=== PATIENT | female | born 1940 | race Caucasian/White ===

== ENCOUNTER 2018-07-21 09:40 | Day surgery (SDC) | payer MEDICARE, OTHER ==
[~2018-07-21] VITALS: Ht 157.5 cm; Wt 58.9 kg
[2018-07-21] VITALS (9 sets, daily range): BP systolic 124–140; BP diastolic 60–66; PULSE 62–68; RESP 10–18; Ht 157.5 cm; Wt 58.9 kg
--- NOTE | 2018-07-21 07:59 | HPN ---
Date/Time of Note Date/Time of Note DATE: 07/21/18 TIME: 07:58 Interval H&P Admission Note Pt. seen H&P reviewed: No system changes JULIANA CURRY MD Jul 21, 2018 07:59
[~2018-07-21 09:40] MED LIST: CEFAZOLIN 1 GM INJ ONE; CEFAZOLIN 2 GM/50 ML (PMX) 50 ML IVPB PRN
[2018-07-21] MEDS ORDERED: TERI2.4P SQ (10:12)
[2018-07-21] MEDS ORDERED: CYCL5TAB PO (10:14)
[2018-07-21] MEDS ORDERED: METF500T24 PO (10:15)
[2018-07-21] MEDS ORDERED: LINA5TAB PO (10:15)
[2018-07-21] MEDS ORDERED: CALC-143 PO (10:16)
[2018-07-21] MEDS ORDERED: LEVO75TA65 PO (10:17)
[2018-07-21] MEDS ORDERED: AMLO5TAB4 PO (10:17)
[2018-07-21] MEDS ORDERED: LOSA1TAB22 PO (10:17)
[2018-07-21] MEDS ORDERED: SIMV40TA2 PO (10:18)
[2018-07-21] MEDS ORDERED: SERT50TA PO (10:18)
[2018-07-21] MEDS ORDERED: ERGO2000 PO (10:19)
[2018-07-21] MEDS ORDERED: FOLI-49 PO (10:19)
[2018-07-21] MEDS ORDERED: CYCL1DRO BOTH EYES (10:20)
[2018-07-21] MEDS ORDERED: NAPR220C2 PO (10:20)
[2018-07-21] MEDS ORDERED: OMEP20CA16 PO (10:20)
[2018-07-21] MEDS ORDERED: VIT1TABL46 PO (10:23)
[2018-07-21] MEDS ORDERED: CYAN100T PO (10:23)
[2018-07-21] MEDS ORDERED: CARB15DR3 BOTH EYES (10:24)
[2018-07-21] MEDS ORDERED: FLUO5DRO BOTH EYES (10:25)
[2018-07-21] MEDS ORDERED: ALBU8.5H8 INH (10:26)
[2018-07-21] MEDS ORDERED: MAGN400T27 PO (10:26)
[2018-07-21] MEDS ORDERED: ASC500 PO (10:26)
[2018-07-21] MEDS ORDERED: FOLI1TAB5 PO (10:27)
[2018-07-21] MEDS ORDERED: DORZ10DR5 BOTH EYES (10:28)
[2018-07-21] MEDS ORDERED: UROCIT PO (10:30)
[2018-07-21] MEDS ORDERED: POLY15DR25 BOTH EYES (10:31)
--- NOTE | 2018-07-21 11:02 | PDOCDIS ---
Discharge Instructions DIAGNOSIS Discharge Diagnosis LLE ATHEROSCLEROSIS AND NON HEALING ULCER CONDITION [id number] Patient Condition: [id number] Good HOME CARE INSTRUCTIONS: [id number] Diet Instructions: [id number] Low Fat /Cholesterol ACTIVITY: [id number] Activity Restrictions: Arivw9b Slowly Increase Activity Avoid heavy lifting Do not Drive Do not operate Machinery Do not operate Power Tool Avoid Heavy Housework Keep Limb Elevated [id number] Bathing Restrictions: Esbyr0l Sponge Bath FOLLOW UP/APPOINTMENTS Follow-up Plan DO NOT REMOVE DRESSING FOR ONE WEEK. FOLLOWUP NEXT WEEK ON FRIDAY AM IN THE WOUND CARE OFFICE JULIANA CURRY MD Jul 21, 2018 11:02
--- NOTE | 2018-07-21 11:06 | SIPON ---
Date/Time of Note Date/Time of Note DATE: 07/21/18 TIME: 11:03 Operative Report Preoperative Diagnosis LLE ATHEROSCLEROSIS AND NONHEALING ULCER Postoperative Diagnosis SAME Operation/Procedure Performed LLE DEBRIDEMENT AND STSG SUBSTITUTE APPLICATION WITH AMNIOTIC TISSUE Surgeon see signature line assistant professor of spanish NONE Anesthesia: moderate sedation Estimated blood loss: minimal Transfusion Required none Specimen NONE Grafts/Implants AMNIOTIC TISSUE MIMEDIX Complications none JULIANA CURRY MD Jul 21, 2018 11:06
[2018-07-21] MEDS ORDERED: LIDOCAINE 1% (MPF) 30 ML INJ ONE (11:34)
--- NOTE | 2018-07-21 11:44 | PREAC ---
Date/Time of Note Date/Time of Note DATE: 07/21/18 TIME: 11:42 Anesthesia Eval and Record Evaluation Time Pre-Procedure Interview DATE: 07/21/18 TIME: 11:42 Age 78 Sex female NPO: 8 hrs Preoperative diagnosis left lower extremity arthrosclerosis and non healing Planned procedure left lower extremity debriedment Past Medical History Past Medical History: Includes Cardio: HTN, Dyslipidemia Endo: Diabetes, Hypothyroid Surgery & Anesthesia Issues No known issue Meds Anticoagulation: No Beta Vasile within 24 hr: No Reason Beta Vasile not given: Pt. not on B-Vasile Reported Medications Polyvinyl Alcohol (Tears Again) 15 Ml Drops, 1 DRP BOTH EYES PRN, BOTTLE 07/21/18 Potassium Citrate* (Urocit-K*) 5 Meq Tabsr, 1 MEQ PO DAILY, TAB.SA 07/21/18 Dorzolamide Hcl* (Dorzolamide Hcl*) 10 Ml Drops, 1 DROP BOTH EYES TID, #1 EA 07/21/18 Folic Acid/Multivits-Min/Lut (Centrum Silver Chewable Tablet) 1 Each Tab.chew, 1 EACH PO DAILY, TAB.CHEW 07/21/18 Ascorbic Acid (Vitamin C) 500 Mg Tab, 500 MG PO DAILY, TAB 07/21/18 Albuterol Sulfate* (Proair HFA*) 8.5 Gm Hfa.aer.ad, 2 PUFF INH Q4H PRN for WHEEZING AND SOB, #1 INHALER 07/21/18 Magnesium Oxide* (Mag-Oxide*) 400 Mg Tablet, 400 MG PO BID, TAB 07/21/18 Fluorometholone* (FML*) 5 Ml Drops.susp, 1 DROP BOTH EYES BID, BOTTLE 07/21/18 Carboxymethylcellulose Sodium* (Refresh Tears*) 15 Ml Drops, 1 DROP BOTH EYES DAILY, #1 EA 07/21/18 Vitamin B Complex* (Vitamin B Complex*) 1 Each Tablet, 1 TAB PO DAILY, TAB 07/21/18 Cyanocobalamin* (Vitamin B12*) 100 Mcg Tab, 100 MCG PO DAILY, TAB 07/21/18 Cyclosporine (RESTASIS) 1 Each Droperette, 1 DROP BOTH EYES Q12, #1 BOX 07/21/18 Omeprazole* (Omeprazole*) 20 Mg Capsule.dr, 20 MG PO DAILY, #30 CAP 1/15/19 Naproxen* (Aleve*) 220 Mg Capsule, 220 MG PO BID PRN for PAIN AND/OR INFLAMMATION, #60 CAP 07/21/18 Folic Acid* (Folic Acid*) 1 Mg Tablet, 1 MG PO DAILY, TAB 07/21/18 Ergocalciferol (Vitamin D2) (VITAMIN D2) 2,000 Unit Tablet, 2000 UNIT PO DAILY, TAB 07/21/18 Simvastatin* (Zocor*) 40 Mg Tablet, 40 MG PO QHS, #30 TAB 07/21/18 Sertraline Hcl* (Zoloft*) 50 Mg Tablet, 50 MG PO DAILY, #30 TAB 07/21/18 Amlodipine Besylate* (Norvasc*) 5 Mg Tablet, 5 MG PO DAILY, TAB 07/21/18 Losartan-Hydrochlorothiazide (Losartan-HCTZ) 50-12.5 Mg Tab, 1 TAB PO DAILY, TAB 07/21/18 Levothyroxine Sodium* (Levoxyl*) 75 Mcg Tablet, 75 MCG PO BEFORE BREAKFAST, #30 TAB 07/21/18 Calcium Citrate/Vitamin D (Citracal-Vitamin D 200 MG-250) 1 Each Tablet, 1 EACH PO BID, TAB 07/21/18 Linagliptin (TRADJENTA) 5 Mg Tablet, 5 MG PO DAILY, TAB 07/21/18 Metformin Hcl* (Metformin Hcl*) 500 Mg Tablet, 500 MG PO WITH BREAKFAST DINNE, #60 TAB 07/21/18 Cyclobenzaprine Hcl* (Cyclobenzaprine Hcl*) 5 Mg Tablet, 5 MG PO DAILY PRN for MUSCLE SPASMS, #60 TAB 07/21/18 Teriparatide (Forteo) 2.4 Ml Pen.injctr, 20 MCG SQ DAILY, EA 07/21/18 Current Medications Cefazolin Sodium/ Dextrose 50 ml @ 100 mls/hr OC PRN IVPB TO OR; Start 07/21/18 at 06:00; Stop 07/21/18 at 14:00 Meds reviewed: Yes Allergies Coded Allergies: No Known Allergies (Verified Allergy, Unknown, 07/21/18) Allergies Reviewed: Yes Labs/Studies Labs Reviewed: Reviewed by anesthesiologist Result Diagram: 07/21/18 1008 07/21/18 1008 Laboratory Tests 07/21/18 10:08 test: N/A Studies: ECG (SR) Pre-procedure Exam Last vitals Vital Signs Date Temp Pulse Resp B/P (MAP) Pulse Ox O2 O2 Flow FiO2 Time Delivery Rate 07/21/18 96.4 64 18 134/63 98 Room Air 10:25 (86) Airway: Adequate mouth opening Mallampati: Mallampati II Teeth: Normal Lung: Normal Heart: Normal ASA Physical Status ASA physical status: 2 Emergency: None Planned Anesthetic General/MAC: ETT Pre-operative Attestations Prior to commencing anesthesia and surgery, the patient was re-evaluated, there was verification of: *The patient's identity *The results of appropriate recent lab work and preoperative vital signs *The above evaluation not changing prior to induction *Anesthetic plan, risk benefits, alternative and complications discussed with patient/family; questions answered; patient/family understands, accepts and wishes to proceed. KEYLA BROWN Jul 21, 2018 11:44
[2018-07-21] MEDS ORDERED: FENTAnyl 50 MCG/ML VIAL ONE ×2 (12:18→12:32)
[2018-07-21] MEDS ORDERED: MIDAZOLAM 1 MG/ML 2 ML INJ ONE (12:18)
--- NOTE | 2018-07-21 12:55 | PAC ---
Date/Time of Note Date/Time of Note DATE: 07/21/18 TIME: 12:54 Post-Anesthesia Notes Post-Anesthesia Note Last documented vital signs Vital Signs Date Temp Pulse Resp B/P (MAP) Pulse Ox O2 O2 Flow FiO2 Time Delivery Rate 07/21/18 96.4 64 18 134/63 98 Room Air 10:25 (86) Activity: WNL Respiratory function: WNL Cardiovascular function: WNL Mental status: Baseline Pain reasonably controlled: Yes Hydration appropriate: Yes Nausea/Vomiting absent: Yes Comments BP:134/67, pulse:78, spo2:100%,T:98,3 CHARLES GONZALEZ MD Jul 21, 2018 12:55
[2018-07-21] MEDS ORDERED: FENTAnyl 50 MCG/ML VIAL IV PRN (13:00)
[2018-07-21] MEDS ORDERED: DIPHENHYDRAMINE 50 MG INJ IV PRN (13:00)
[2018-07-21] MEDS ORDERED: ONDANSETRON 4 MG INJ IV PRN (13:00)
--- NOTE | 2018-07-21 13:06 | OPR ---
DATE OF OPERATION: SURGEON: Oskar Harper MD PREOPERATIVE DIAGNOSES: 1. Left lower extremity atherosclerosis. 2. Nonhealing ulcer. POSTOPERATIVE DIAGNOSES: 1. Left lower extremity atherosclerosis. 2. Nonhealing ulcer. ANESTHESIA: Local with moderate sedation. ESTIMATED BLOOD LOSS: Minimal. COMPLICATIONS: None. HEPARIN: None. SPECIMEN: None. GRAFT: Amniotic tissue, split thickness skin graft, mesh 4 x 4.5 cm and AmnioFill 500 mg. COMPLICATIONS: None. OPERATIONS PERFORMED: 1. Left lower extremity debridement of skin, subcutaneous tissue and muscle less than 20 cm2. 2. Split thickness skin graft, application of skin graft substitute using 4 x 4.5 cm mesh. 3. Skin graft substitute AmnioFill skin graft substitute a paste 500 mg. DESCRIPTION OF PROCEDURE: The patient was brought into the operating room table, placed in supine po sition. Bilateral upper extremities were placed at 80 degrees. All bony prominences were padded too ropriately. A timeout was performed and the correct site was marked and confirmed. Preoperative ant ibiotics were given to the patient. At this point, left lower extremity was then prepped and draped in usual standard sterile fashion. Using curet and sharp scissors, excisional sharp debridement of t he left lower extremity wound was performed, all necrotic tissue was removed and adequate rebleeding was identified. Excisional debridement involved the skin, subcutaneous tissue and underlying muscle with some exposed tendon. At this point as the patient does have a wound defect, we went ahead and a pplied an AmnioFill paste and this is an amniotic tissue as skin graft substitute in order to fill th e gap and provide adequate coverage of the wound defect in order to allow for secondary wound closure . Once the paste was applied, we went ahead and covered it with a mesh 4 x 4.5 cm amniotic tissue wi th split-thickness skin graft substitute application. Once that was performed, we went ahead and karley emery Adaptic, Telfa and Kerlix sterile dressing. The patient tolerated the procedure well and was ana m en to postanesthesia care unit in stable condition. PLAN: We are hoping to leave the wound intact over the next 7 days to allow adequate uptake of the g raft and amniotic tissue in order to provide coverage of the wound defect area and for a secondary wo und healing. Dictated By: OSKAR COVARRUBIAS/DIMITRIS Conf#: [id number] [employer]#: [id number]
--- NOTE | 2018-07-21 19:51 | RADRPT ---
Vent Rate: 60 bpm RR Interval: 1000 msec NE Interval: 202 msec QRS Duration: 86 msec QT Interval: 431 msec QTC Interval: 431 msec P-R-T Dwale: 27 - -8 - 44 degrees Sinus rhythm...incomplete ECG Electronically Signed By: Brigido Romo [id number]
[2018-08-10] MEDS ORDERED: BUPR-165 PO (07:22)
[2018-08-10] MEDS ORDERED: GABA100C PO (07:22)
[2018-08-10] MEDS ORDERED: ALPR0.254 PO (07:22)
== END 2018-07-21 14:06 | disposition home or self-care (01) ==
LOC: SDS 09:40
PROVIDERS: ATTEND Student in an Organized Health Care Education/Training Program
DX: I70.248 Atherosclerosis of native arteries of left leg with ulceration of other part of lower leg (principal); L97.829 Non-pressure chronic ulcer of other part of left lower leg with unspecified severity; I10 Essential (primary) hypertension; E11.9 Type 2 diabetes mellitus without complications; E78.00 Pure hypercholesterolemia, unspecified
CPT/HCPCS: 11043; 71045; 80048; 81003; 82962; 85025; 85610; 85730; 93005; 93970; J0690; J2250; J3010

== ENCOUNTER 2018-08-25 09:39 | Day surgery (SDC) | payer MEDICARE, OTHER ==
[2018-08-24 13:54] VITALS: Ht 160 cm; Wt 60.0 kg
[2018-08-25] VITALS (12 sets, daily range): BP systolic 121–157; BP diastolic 58–70; PULSE 58–62; RESP 11–18
[~2018-08-25] VITALS: Ht 160 cm; Wt 60.0 kg
[~2018-08-25 09:39] MED LIST changes: +ALBU8.5H8 INH; +ALPR0.254 PO; +AMLO5TAB4 PO; +ASC500 PO; +BUPR-165 PO; +CALC-143 PO; +CARB15DR3 BOTH EYES; -CEFAZOLIN 1 GM INJ ONE; -CEFAZOLIN 2 GM/50 ML (PMX) 50 ML IVPB PRN; +CYAN100T PO; +CYCL1DRO BOTH EYES; +CYCL5TAB PO; +DORZ10DR5 BOTH EYES; +ERGO2000 PO; +FLUO5DRO BOTH EYES; +FOLI-49 PO; +FOLI1TAB5 PO; +GABA100C PO; +LEVO75TA65 PO; +LINA5TAB PO; +LOSA1TAB22 PO; +MAGN400T27 PO; +METF500T24 PO; +NAPR220C2 PO; +OMEP20CA16 PO; +POLY15DR25 BOTH EYES; +SERT50TA PO; +SIMV40TA2 PO; +TERI2.4P SQ; +UROCIT PO; +VANCOMYCIN 1 GM 250 ML IVPB SCH; +VIT1TABL46 PO
[2018-08-25] MEDS ORDERED: ACETAMINOPHEN 500 MG TAB PO ONE (10:30)
--- NOTE | 2018-08-25 11:46 | HPN ---
Date/Time of Note Date/Time of Note DATE: 08/25/18 TIME: 11:46 Interval H&P Admission Note Pt. seen H&P reviewed: No system changes JULIANA CURRY MD Aug 25, 2018 11:46
--- NOTE | 2018-08-25 11:50 | CONS ---
Assessment/Plan Assessment/Plan Assessment/Plan (Daily) VASCULAR SURGERY CONSULTATION Dear Doctors: Ms. Douglas is a 77-year-old female who presented to us with past medical history of left lower extremity nonhealing ulcer on the lateral aspect of the lower leg that she has had now for couple months that had not healed and grad ually worsening. Patient was seen by us in our outpatient office and was sent to our wound care clinic for further management and intervention. At the moment, the patient's [id number] has been applying Medihoney to it daily with local debridements and amniotic tissue application in order to help clean the wound and allow for secondary wound healing. She had also underwent lower extremity angiogram that identified she shoul;d have adeqautre perfusion to the areas that we are concerned about. Since our evaluation of the patient she has now developed a new ulcer just superior to the original one that is also concerning. Upon our biopsy and debridement with our last intervention no findings to suggest cancer or vasculitis or atypia was identified Further, the patient will underwent venous reflux studies as she has bilateral lower extremity varicose veins but were normal. At the moment, the patient denies shortness of breath, chest pain, nausea, vomiting, fever or chills. REVIEW OF SYSTEMS: A 14-point review performed and negative except what is mentioned in the HPI. PAST MEDICAL HISTORY: Entails hypertension, diabetes, hypercholesterolemia, thyroid disease. PAST SURGICAL HISTORY: Cholecystectomy. ALLERGIES: No known drug allergies. SOCIAL HISTORY: Denies current tobacco, alcohol or illicit drug use. FAMILY HISTORY: Positive for diabetes and hypertension. PHYSICAL EXAMINATION: GENERAL: Alert and oriented x3, no apparent distress. HEENT: Normocephalic, atraumatic. Mucosa moist. NECK: Supple. No carotid bruit. PULMONARY: Clear to auscultation bilaterally. No crackles. CARDIOVASCULAR: S1, S2 present. No murmurs. ABDOMEN: Soft, nontender, nondistended. Bowel sounds positive. RIGHT LOWER EXTREMITY: Palpable femoral pulse, faint pedal pulse. Motor, and sensory intact. Cap refill 3 seconds. Presence of lipodermatosclerosis edema 1+. Presence of varicose veins. LEFT LOWER EXTREMITY: Palpable femoral pulse, faint to nonpalpable pedal pulse were very weak. Capillary refill 3 to 4 seconds. Presence of lipodermatosclerosis edema and varicose veins. Presence of ulcer on the lateral aspect of the lower leg appears to be healing well no exposed subcutaneous tissue identified. There is still residual amniotic tissue covering the ulcer. The new ulcer superior to the current ulcer with exposure of subcutaneous tissue with fibrinous necrotic tissue. No surrounding erythema at this point. ASSESSMENT AND PLAN: -Bilateral lower extremity atherosclerosis and a left lower extremity nonhealing ulcer. It seems the patient has had prolonged nonhealing of her left lower extremity ulcer that has not improved with local wound care. Upon her recent evaluation of her arterial studies, the patient does have severe atherosclerotic disease of her left tibial vessels that was noted however upon an angiogram she did have two vessel tibial arteries to the distal ankle that should provide adequate healing for the ulcers. It is concerning she has developed a new also superior to the previous one without any recent trauma or injury to the site. Concern for vasculitis and/or cancer is her biopsy appears to be low. We will continue with our local wound debridement and wound care -She is ambulatory and patient's family would like to have everything done in order to salvage her limb and prevent any further deterioration of the wounds. The patient and the family at the bedside have agreed to proceed, understanding all the risks and benefits involved. They also would like to have everything done in order to help heal this wound as this has become quite painful for the patient. Bilateral lower extremity varicose veins and venous insufficiency. The patient does have significant varicose veins of the lower leg and with the presence of lipodermatosclerosis there is some concern that she may also have a mixed disease with venous insufficiency that could be contributing to the fact that the wound has not been healing. We will therefore plan bilateral lower extremity venous reflux studies to evaluate her deep and superficial system to better delineate these findings. We had also offered the patient a 2 to 3 - layer compression therapy once we have had our reflux studies and angiogram completed. But she has not been compliant with that Optimize vascular status (BP meds, diet, nutrition, exercise, sugar control, antiplatelets). Discussed findings, plan and management with the patient and the family at the bedside and they understand and are on board, certified instructor bridge was also present. Continue with local wound care with collagen-based dressings and a 2 layer compression dressings and amniotic tissue application to help resolve the wound defect and closure of the wound. Discussed findings, plan and management with the patient and the family and they understand. Thank you for allowing us to partake in the care of your patient. Please call with any questions. Consultation Date/Type/Reason Admit Date/Time Date/Time of Note DATE: 08/25/18 TIME: 11:49 Past Medical History Home Meds Reported Medications Gabapentin* (Neurontin*) 100 Mg Capsule, 100 MG PO TID, #90 CAP 08/10/18 Bupropion Hcl* (Wellbutrin SR*) 150 Mg Tablet.sa, 150 MG PO DAILY, TAB.SA 08/10/18 Alprazolam (Xanax) 0.25 Mg Tab, 0.25 MG PO BID, TAB 08/10/18 Polyvinyl Alcohol (Tears Again) 15 Ml Drops, 1 DRP BOTH EYES PRN, BOTTLE 07/21/18 Potassium Citrate* (Urocit-K*) 5 Meq Tabsr, 1 MEQ PO DAILY, TAB.SA 07/21/18 Dorzolamide Hcl* (Dorzolamide Hcl*) 10 Ml Drops, 1 DROP BOTH EYES TID, #1 EA 07/21/18 Folic Acid/Multivits-Min/Lut (Centrum Silver Chewable Tablet) 1 Each Tab.chew, 1 EACH PO DAILY, TAB.CHEW 07/21/18 Ascorbic Acid (Vitamin C) 500 Mg Tab, 500 MG PO DAILY, TAB 07/21/18 Albuterol Sulfate* (Proair HFA*) 8.5 Gm Hfa.aer.ad, 2 PUFF INH Q4H PRN for WHEEZING AND SOB, #1 INHALER 07/21/18 Magnesium Oxide* (Mag-Oxide*) 400 Mg Tablet, 400 MG PO BID, TAB 07/21/18 Fluorometholone* (FML*) 5 Ml Drops.susp, 1 DROP BOTH EYES BID, BOTTLE 07/21/18 Carboxymethylcellulose Sodium* (Refresh Tears*) 15 Ml Drops, 1 DROP BOTH EYES DAILY, #1 EA 07/21/18 Vitamin B Complex* (Vitamin B Complex*) 1 Each Tablet, 1 TAB PO DAILY, TAB 07/21/18 Cyanocobalamin* (Vitamin B12*) 100 Mcg Tab, 100 MCG PO DAILY, TAB 07/21/18 Cyclosporine (RESTASIS) 1 Each Droperette, 1 DROP BOTH EYES Q12, #1 BOX 07/21/18 Omeprazole* (Omeprazole*) 20 Mg Capsule.dr, 20 MG PO DAILY, #30 CAP 07/21/18 Naproxen* (Aleve*) 220 Mg Capsule, 220 MG PO BID PRN for PAIN AND/OR INFLAMMATION, #60 CAP 07/21/18 Folic Acid* (Folic Acid*) 1 Mg Tablet, 1 MG PO DAILY, TAB 07/21/18 Ergocalciferol (Vitamin D2) (VITAMIN D2) 2,000 Unit Tablet, 2000 UNIT PO DAILY, TAB 07/21/18 Simvastatin* (Zocor*) 40 Mg Tablet, 40 MG PO QHS, #30 TAB 07/21/18 Sertraline Hcl* (Zoloft*) 50 Mg Tablet, 50 MG PO DAILY, #30 TAB 07/21/18 Amlodipine Besylate* (Norvasc*) 5 Mg Tablet, 5 MG PO DAILY, TAB 07/21/18 Losartan-Hydrochlorothiazide (Losartan-HCTZ) 50-12.5 Mg Tab, 1 TAB PO DAILY, TAB 07/21/18 Levothyroxine Sodium* (Levoxyl*) 75 Mcg Tablet, 75 MCG PO BEFORE BREAKFAST, #30 TAB 07/21/18 Calcium Citrate/Vitamin D (Citracal-Vitamin D 200 MG-250) 1 Each Tablet, 1 EACH PO BID, TAB 07/21/18 Linagliptin (TRADJENTA) 5 Mg Tablet, 5 MG PO DAILY, TAB 07/21/18 Metformin Hcl* (Metformin Hcl*) 500 Mg Tablet, 500 MG PO WITH BREAKFAST DINNE, #60 TAB 07/21/18 Cyclobenzaprine Hcl* (Cyclobenzaprine Hcl*) 5 Mg Tablet, 5 MG PO DAILY PRN for MUSCLE SPASMS, #60 TAB 07/21/18 Teriparatide (Forteo) 2.4 Ml Pen.injctr, 20 MCG SQ DAILY, EA 07/21/18 Medications Current Medications Vancomycin HCl 250 ml @ 125 mls/hr OC IVPB Last administered on 08/25/18at 10:35; Admin Dose 125 MLS/HR; Start 08/25/18 at 06:30; Stop 08/25/18 at 16:00 Allergies: Coded Allergies: No Known Allergies (Verified Allergy, Unknown, 08/25/18) Social History Smoking Status: Never smoker Exam/Review of Systems Results Results 24hrs Laboratory Tests Test 08/25/18 10:17 Bedside Glucose 126 Medications Medication Current Medications Vancomycin HCl 250 ml @ 125 mls/hr OC IVPB Last administered on 08/25/18at 10:35; Admin Dose 125 MLS/HR; Start 08/25/18 at 06:30; Stop 08/25/18 at 16:00 JULIANA CURRY MD Aug 25, 2018 11:50
--- NOTE | 2018-08-25 11:55 | PREAC ---
Date/Time of Note Date/Time of Note DATE: 08/25/18 TIME: 11:51 Anesthesia Eval and Record Evaluation Time Pre-Procedure Interview DATE: 08/25/18 TIME: 11:51 Age 78 Sex female NPO: 8 hrs Preoperative diagnosis L lower extremity wound Planned procedure L lower extremity wound debridement Past Medical History Past Medical History: Includes Cardio: HTN, Dyslipidemia Endo: Hypothyroid Psych: Anxiety Surgery & Anesthesia Issues No known issue Meds Anticoagulation: No Beta Vasile within 24 hr: No Reason Beta Vasile not given: Pt. not on B-Vasile Reported Medications Gabapentin* (Neurontin*) 100 Mg Capsule, 100 MG PO TID, #90 CAP 08/10/18 Bupropion Hcl* (Wellbutrin SR*) 150 Mg Tablet.sa, 150 MG PO DAILY, TAB.SA 08/10/18 Alprazolam (Xanax) 0.25 Mg Tab, 0.25 MG PO BID, TAB 08/10/18 Polyvinyl Alcohol (Tears Again) 15 Ml Drops, 1 DRP BOTH EYES PRN, BOTTLE 07/21/18 Potassium Citrate* (Urocit-K*) 5 Meq Tabsr, 1 MEQ PO DAILY, TAB.SA 07/21/18 Dorzolamide Hcl* (Dorzolamide Hcl*) 10 Ml Drops, 1 DROP BOTH EYES TID, #1 EA 07/21/18 Folic Acid/Multivits-Min/Lut (Centrum Silver Chewable Tablet) 1 Each Tab.chew, 1 EACH PO DAILY, TAB.CHEW 07/21/18 Ascorbic Acid (Vitamin C) 500 Mg Tab, 500 MG PO DAILY, TAB 07/21/18 Albuterol Sulfate* (Proair HFA*) 8.5 Gm Hfa.aer.ad, 2 PUFF INH Q4H PRN for WHEEZING AND SOB, #1 INHALER 07/21/18 Magnesium Oxide* (Mag-Oxide*) 400 Mg Tablet, 400 MG PO BID, TAB 07/21/18 Fluorometholone* (FML*) 5 Ml Drops.susp, 1 DROP BOTH EYES BID, BOTTLE 07/21/18 Carboxymethylcellulose Sodium* (Refresh Tears*) 15 Ml Drops, 1 DROP BOTH EYES DAILY, #1 EA 07/21/18 Vitamin B Complex* (Vitamin B Complex*) 1 Each Tablet, 1 TAB PO DAILY, TAB 07/21/18 Cyanocobalamin* (Vitamin B12*) 100 Mcg Tab, 100 MCG PO DAILY, TAB 07/21/18 Cyclosporine (RESTASIS) 1 Each Droperette, 1 DROP BOTH EYES Q12, #1 BOX 07/21/18 Omeprazole* (Omeprazole*) 20 Mg Capsule.dr, 20 MG PO DAILY, #30 CAP 07/21/18 Naproxen* (Aleve*) 220 Mg Capsule, 220 MG PO BID PRN for PAIN AND/OR INFLAMMATION, #60 CAP 07/21/18 Folic Acid* (Folic Acid*) 1 Mg Tablet, 1 MG PO DAILY, TAB 07/21/18 Ergocalciferol (Vitamin D2) (VITAMIN D2) 2,000 Unit Tablet, 2000 UNIT PO DAILY, TAB 07/21/18 Simvastatin* (Zocor*) 40 Mg Tablet, 40 MG PO QHS, #30 TAB 07/21/18 Sertraline Hcl* (Zoloft*) 50 Mg Tablet, 50 MG PO DAILY, #30 TAB 07/21/18 Amlodipine Besylate* (Norvasc*) 5 Mg Tablet, 5 MG PO DAILY, TAB 07/21/18 Losartan-Hydrochlorothiazide (Losartan-HCTZ) 50-12.5 Mg Tab, 1 TAB PO DAILY, TAB 07/21/18 Levothyroxine Sodium* (Levoxyl*) 75 Mcg Tablet, 75 MCG PO BEFORE BREAKFAST, #30 TAB 07/21/18 Calcium Citrate/Vitamin D (Citracal-Vitamin D 200 MG-250) 1 Each Tablet, 1 EACH PO BID, TAB 07/21/18 Linagliptin (TRADJENTA) 5 Mg Tablet, 5 MG PO DAILY, TAB 07/21/18 Metformin Hcl* (Metformin Hcl*) 500 Mg Tablet, 500 MG PO WITH BREAKFAST DINNE, #60 TAB 07/21/18 Cyclobenzaprine Hcl* (Cyclobenzaprine Hcl*) 5 Mg Tablet, 5 MG PO DAILY PRN for MUSCLE SPASMS, #60 TAB 07/21/18 Teriparatide (Forteo) 2.4 Ml Pen.injctr, 20 MCG SQ DAILY, EA 07/21/18 Current Medications Vancomycin HCl 250 ml @ 125 mls/hr OC IVPB Last administered on 08/25/18at 10:35; Admin Dose 125 MLS/HR; Start 08/25/18 at 06:30; Stop 08/25/18 at 16:00 Meds reviewed: Yes Allergies Coded Allergies: No Known Allergies (Verified Allergy, Unknown, 08/25/18) Allergies Reviewed: Yes Labs/Studies Labs Reviewed: Reviewed by anesthesiologist test: N/A Studies: ECG, CXR (no acute dz) Pre-procedure Exam Airway: Adequate mouth opening, Adequate thyromental dist Mallampati: Mallampati II Teeth: Abnormal (multiple missing teeth) Lung: Normal Heart: Normal ASA Physical Status ASA physical status: 2 Emergency: None Planned Anesthetic General/MAC: MAC Pre-operative Attestations Prior to commencing anesthesia and surgery, the patient was re-evaluated, there was verification of: *The patient's identity *The results of appropriate recent lab work and preoperative vital signs *The above evaluation not changing prior to induction *Anesthetic plan, risk benefits, alternative and complications discussed with patient/family; questions answered; patient/family understands, accepts and wishes to proceed. Safety Engineer Pressure Vessels used YELENA CHU Aug 25, 2018 11:55
--- NOTE | 2018-08-25 11:59 | OPR ---
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 Left lower extremity atherosclerosis and Nonhealing ulcers. POSTOPERATIVE DIAGNOSES: 1. Left lower extremity atherosclerosis and Nonhealing ulcers. ANESTHESIA: Local with moderate sedation. ESTIMATED BLOOD LOSS: Minimal. COMPLICATIONS: None. HEPARIN: None. SPECIMEN: None. GRAFT: Amniotic tissue, split thickness skin graft, mesh 4 x 6 cm and AmnioFill 500 mg powder mix. COMPLICATIONS: None. OPERATIONS PERFORMED: 1. Left lower extremity excisional sharp debridement of skin, subcutaneous tissue and muscle less than 20 cm2. 2. Split thickness skin graft, application of amniotic tissue (graft substitute) using 4 x 6 cm mesh. DESCRIPTION OF PROCEDURE: The patient was brought into the operating room table, placed in supine position. Bilateral upper extremities were placed at 80 degrees. All bony prominences were padded appropriately. A time-out was performed and the correct site was marked and confirmed. Preoperative antibiotics were given to the patient. At this point, left lower extremity was then prepped and draped in usual standard sterile fashion. Using curet and sharp scissors, excisional sharp debridement of the left lower extremity upper wound was performed, all necrotic tissue was removed and adequate rebleeding was identified. Excisional debridement involved the skin, subcutaneous tissue. This has improved since our last intervention. At this point as the patient does have a wound defect, we went ahead and applied an amniotic tissue powder mix (Amniofill) in order to fill the gap and as amnio graft as split thickness skin graft substitute to provide adequate coverage of the wound in order to allow for secondary wound closure. The substitute measured 4 x 6 cm amniotic tissue. Once that was performed, we went ahead and placed Adaptic, Telfa and Kerlix sterile dressing. The patient tolerated the procedure well and was taken to postanesthesia care unit in stable condition. OSKAR CURRY MD Aug 25, 2018 11:59
[2018-08-25] MEDS ORDERED: FENTAnyl 50 MCG/ML VIAL IV PRN ×2 (12:00)
[2018-08-25] MEDS ORDERED: OXYCODONE/ACETAMINOPHEN (5/325) TAB PO PRN ×2 (12:00)
[2018-08-25] MEDS ORDERED: ALBUTEROL 0.083% (NEB) 2.5 MG/3 ML AMP HHN PRN (12:00)
[2018-08-25] MEDS ORDERED: ONDANSETRON 4 MG INJ IV PRN (12:00)
[2018-08-25] MEDS ORDERED: HYDROmorphONE 1 MG/5 ML IV SYRINGE IV PRN ×2 (12:00)
[2018-08-25] MEDS ORDERED: DIPHENHYDRAMINE 50 MG INJ IV PRN (12:00)
[2018-08-25] MEDS ORDERED: MEPERIDINE 25 MG INJ IV PRN (12:00)
[2018-08-25] MEDS ORDERED: LABETALOL HCL 20MG INJ IV PRN (12:00)
[2018-08-25] MEDS ORDERED: morphine (1 MG/ML) 10ML SYRINGE IV PRN (12:00)
[2018-08-25] MEDS ORDERED: FENTAnyl 50 MCG/ML VIAL ONE (12:04)
[2018-08-25] MEDS ORDERED: LIDOCAINE 1% (MDV) 20 ML INJ INJ ONE (12:15)
[2018-08-25] MEDS ORDERED: LIDOCAINE 1% (MPF) 30 ML INJ ONE (12:23)
--- NOTE | 2018-08-25 12:43 | PDOCDIS ---
Discharge Instructions DIAGNOSIS Discharge Diagnosis BILATERAL LOWER EXTREMITY ATHEROSCLEROSIS AND LLE NONHEALING ULCERS CONDITION [id number] Patient Condition: [id number] Good HOME CARE INSTRUCTIONS: [id number] Diet Instructions: [id number] Regular ACTIVITY: [id number] Activity Restrictions: [id number] Slowly Increase Activity Rest between Activity Avoid heavy lifting Do not Drive Do not operate Machinery Do not operate Power Tool Avoid Heavy Housework [id number] Bathing Restrictions: [id number] Sponge Bath FOLLOW UP/APPOINTMENTS Follow-up Plan do not remove dressing for one week until followup appointment JULIANA CURRY MD Aug 25, 2018 12:43
--- NOTE | 2018-08-25 12:51 | PAC ---
Date/Time of Note Date/Time of Note DATE: 08/25/18 TIME: 12:50 Post-Anesthesia Notes Post-Anesthesia Note Last documented vital signs @1246 140/69, 100%, hr 58, rr16, 98.3 Activity: WNL Respiratory function: WNL Cardiovascular function: WNL Mental status: Baseline Pain reasonably controlled: Yes Hydration appropriate: Yes Nausea/Vomiting absent: Yes YELENA CHU Aug 25, 2018 12:51
== END 2018-08-25 14:46 | disposition home or self-care (01) ==
LOC: SDS 09:39
PROVIDERS: ATTEND Student in an Organized Health Care Education/Training Program
DX: I70.248 Atherosclerosis of native arteries of left leg with ulceration of other part of lower leg (principal); L97.829 Non-pressure chronic ulcer of other part of left lower leg with unspecified severity; I70.201 Unspecified atherosclerosis of native arteries of extremities, right leg; E11.9 Type 2 diabetes mellitus without complications; I10 Essential (primary) hypertension; E78.00 Pure hypercholesterolemia, unspecified
CPT/HCPCS: 11043; 82962; J1170; J2405; J3010; J3370